=== PATIENT | female | born 1990 | race African-American/Black ===

== ENCOUNTER 2016-07-18 22:15 | Emergency (ER) | payer MEDICAID ==
[~2016-07-18] VITALS: Ht 154.9 cm; Wt 47.2 kg
[2016-07-18 22:20] VITALS: BP_SYST 114
[2016-07-18] MEDS: LevALBUTEROL HCL 1.25 MG/0.5 ML *CONC.* VIAL.NEB (XOPENEX CONC.) INH ONE (22:56)
[2016-07-19 00:22] VITALS: BP_SYST 114
== END 2016-07-19 00:20 | disposition home or self-care (01) ==
LOC: SED 22:15
DX: J20.9 Acute bronchitis, unspecified (principal)
CPT/HCPCS: 71010; 81025; 94640; 99283

== ENCOUNTER 2017-01-20 11:40 | Emergency (ER) | payer SELFPAY ==
[~2017-01-20] VITALS: Ht 154.9 cm; Wt 54.4 kg
[2017-01-20 11:55] VITALS: BP_SYST 98
[2017-01-20 12:15] VITALS: BP_SYST 105
== END 2017-01-20 12:15 | disposition home or self-care (01) ==
LOC: SED 11:40
DX: L42 Pityriasis rosea (principal); B09 Unspecified viral infection characterized by skin and mucous membrane lesions
CPT/HCPCS: 99283